=== PATIENT | female | born 1975 | race Caucasian/White ===

== ENCOUNTER 2016-09-18 08:15 | Emergency (ER) | payer BC ==
[~2016-09-18] VITALS: Ht 172.7 cm; Wt 78.9 kg
[2016-09-18 08:19] VITALS: BP_SYST 128
[2016-09-18 09:01] LABS: BILIRUBIN,URINE NEGATIVE (NEGATIVE); BLOOD, URINE 3+ (NEGATIVE); CLARITY/URINE CLEAR (CLEAR); COLOR,URINE YELLOW (YELLOW); GLUCOSE,URINE NEGATIVE (NEGATIVE); KETONES,URINE NEGATIVE (NEGATIVE); LEUKOCYTE ESTERASE ,URINE TRACE (NEGATIVE); NITRITE, URINE NEGATIVE (NEGATIVE); PROTEIN URINE 1+ (NEGATIVE); UROBILINOGEN,URINE 0.2 (0.2-1.0)
[2016-09-18 09:06] LABS: BASOPHILS % (AUTO) 0.3 % (0.0-2.0); EOSINOPHILS % (AUTO) 0.4 % (0.0-4.0); HEMATOCRIT 32.6 % (36-48); LYMPHOCYTES # (AUTO) 1.1 K/uL (1.0-5.5); LYMPHOCYTES % (AUTO) 28.8 % (20.5-51.5); MEAN CORPUSCULAR HEMOGLOBIN 33 pg (27-31); MEAN CORPUSCULAR HGB CONC 34 % (32-36); MEAN CORPUSCULAR VOLUME 97 fL (79.0-98.0); MONOCYTES # (AUTO) 0.5 K/uL (0.0-1.0); NEUTROPHILS # (AUTO) 2.3 K/uL (1.8-7.7); NEUTROPHILS % (AUTO) 58.5 % (40.0-70.0); PLATELET COUNT (AUTO) 175 K/uL (130-430); RED BLOOD CELL COUNT(AUTO) 3.36 MIL/uL (4.2-6.2); RED CELL DISTRIBUTION WIDTH 12.1 % (9.0-15.0); WHITE BLOOD COUNT (AUTO) 3.9 K/uL (4.8-10.8)
[2016-09-18 09:08] LABS: BACTERIA,URINE MODERATE /HPF (None Seen)
[2016-09-18 09:12] LABS: CALCIUM 8.7 mg/dL (8.4-11.0); CREATININE 0.78 mg/dL (0.55-1.30); POTASSIUM 3.7 mmol/L (3.5-5.1)
[2016-09-18 09:38] LABS: ALBUMIN 3.2 g/dL (3.4-4.8); TOTAL BILIRUBIN 0.2 mg/dL (0.0-1.0); TOTAL PROTEIN, SERUM 7.4 g/dL (6.4-8.3)
[2016-09-18] MEDS ORDERED: NITROFURANTOIN MONOHYD/M-CRYST 100 MG CAPSULE PO SCH (10:00)
[2016-09-18] MEDS ORDERED: MAGNESIUM CITRATE 300 ML ORAL SOLUTION PO ONE (10:15)
[2016-09-18 10:44] VITALS: BP_SYST 130
== END 2016-09-18 10:44 | disposition home or self-care (01) ==
LOC: SED 08:15
DX: O20.0 Threatened abortion (principal); O23.42 Unspecified infection of urinary tract in pregnancy, second trimester; Z3A.17 17 weeks gestation of pregnancy
CPT/HCPCS: 36415; 76805-TC; 80053; 81000-TC; 81025; 84702-TC; 85025; 86900; 86901; 87086; 99285

== ENCOUNTER 2017-02-03 15:40 | Inpatient (IN) | payer BC ==
[~2017-02-03] VITALS: Ht 172.7 cm; Wt 104.3 kg
[2017-02-03] MEDS ORDERED: OXYTOCIN/NORMAL SALINE 1,000 ML IV SCH (16:48)
[2017-02-03] MEDS ORDERED: LR 1,000 ML IV SCH (16:48)
[2017-02-03] MEDS ORDERED: LR 1,000 ML IV ONE (16:48)
[2017-02-03] MEDS ORDERED: NALBUPHINE HCL 10 MG/ML AMP IVP PRN (17:00)
[2017-02-03] MEDS ORDERED: TERBUTALINE SULFATE 1 MG/ML VIAL SUBCUT ONE (17:00)
[2017-02-03 17:28] LABS: BASOPHILS % (AUTO) 0.3 % (0.0-2.0); EOSINOPHILS % (AUTO) 0.2 % (0.0-4.0); HEMATOCRIT 30.4 % (36-48); HEMOGLOBIN 10.7 g/dL (12.0-16.0); LYMPHOCYTES # (AUTO) 1.1 K/uL (1.0-5.5); LYMPHOCYTES % (AUTO) 18.9 % (20.5-51.5); MEAN CORPUSCULAR HEMOGLOBIN 36 pg (27-31); MEAN CORPUSCULAR HGB CONC 35 % (32-36); MEAN CORPUSCULAR VOLUME 103 fL (79.0-98.0); MONOCYTES # (AUTO) 0.7 K/uL (0.0-1.0); MONOCYTES % (AUTO) 11.5 % (1.7-9.3); NEUTROPHILS % (AUTO) 69.1 % (40.0-70.0); PLATELET COUNT (AUTO) 242 K/uL (130-430); RED BLOOD CELL COUNT(AUTO) 2.94 MIL/uL (4.2-6.2); RED CELL DISTRIBUTION WIDTH 14.6 % (9.0-15.0); WHITE BLOOD COUNT (AUTO) 5.8 K/uL (4.8-10.8)
[2017-02-03 18:37] VITALS: BP_SYST 144
[2017-02-04] MEDS ORDERED: FENT2mCg/mL-ROPIVA0.2%/NS EPID 150 ML EP ONE (09:11)
[2017-02-04] MEDS ORDERED: LR 500 ML IV ONE (09:41)
[2017-02-04] MEDS ORDERED: FENT2mCg/mL-ROPIVA0.2%/NS EPID 150 ML EP SCH (09:45)
[2017-02-04] MEDS ORDERED: ePHEDrine sulfate 50 MG/ML VIAL IVP PRN (09:45)
[2017-02-04] MEDS ORDERED: MORPHINE 4 MG/ML INJ. SYRINGE IM ONE (22:30)
[2017-02-05] MEDS ORDERED: FENT2mCg/mL-ROPIVA0.2%/NS EPID 150 ML EP ONE (06:16)
[2017-02-05] MEDS ORDERED: CEFAZOLIN 2 GM IVPB PREMIX 50 ML IV ONE ×2 (09:53→10:00)
[2017-02-05] MEDS ORDERED: LR 1,000 ML IV ONE (10:46)
[2017-02-05] MEDS ORDERED: ePHEDrine sulfate 50 MG/ML VIAL IVP PRN (11:00)
[2017-02-05] MEDS ORDERED: KETOROLAC TROMETHAMINE 30 MG VIAL IM PRN (11:00)
[2017-02-05] MEDS ORDERED: NALBUPHINE HCL 10 MG/ML AMP IVP PRN (11:00)
[2017-02-05] MEDS ORDERED: fentaNYL CITRATE/PF 100 MCG/2 ML AMP IVP PRN (11:00)
[2017-02-05] MEDS ORDERED: ONDANSETRON HCL 4 MG/2 ML VIAL IVP PRN ×2 (11:00)
[2017-02-05] MEDS ORDERED: NALOXONE HCL 0.4 MG/ML AMP (NARCAN) IVP PRN (11:00)
[2017-02-05] MEDS ORDERED: DIPHENHYDRAMINE INJ 50 MG/ML VIAL IVP PRN (11:00)
[2017-02-05] MEDS ORDERED: OXYTOCIN/NORMAL SALINE 1,000 ML IV ONE (11:05)
[2017-02-05 11:10] VITALS: BP_SYST 148
[2017-02-05] MEDS ORDERED: ACETAMINOPHEN 325 MG TABLET PO PRN (11:15)
[2017-02-05] MEDS ORDERED: LANOLIN 7 GM OINT. TP PRN (11:15)
[2017-02-05] MEDS ORDERED: ANUSOL 1 EA SUPP.RECT (PREPARATION H) RC PRN (11:15)
[2017-02-05] MEDS ORDERED: MEASLES,MUMPS&RUBELLA VACC/PF 12500 UNIT/0.5 ML VIAL SUBQ PRN (11:15)
[2017-02-05] MEDS ORDERED: RHO(D) IMMUNE GLOBULIN/MALTOSE 1500 UNITS/1.3 ML (WINHRO) IM PRN (11:15)
[2017-02-05] MEDS ORDERED: BISACODYL 10 MG/SUPPOSITORY RC PRN (11:15)
[2017-02-05] MEDS ORDERED: fentaNYL CITRATE/PF 100 MCG/2 ML AMP ONE (11:39)
[2017-02-05] MEDS: LR 1,000 ML IV SCH (20:17)
[2017-02-05] MEDS: IBUPROFEN 600 MG TABLET PO SCH (23:59)
[2017-02-06] MEDS: LR 1,000 ML IV SCH (04:26)
[2017-02-06] MEDS: IBUPROFEN 600 MG TABLET PO SCH ×3 (06:41→18:16)
[2017-02-06 06:50] LABS: BASOPHILS % (AUTO) 0.1 % (0.0-2.0); EOSINOPHILS % (AUTO) 0.2 % (0.0-4.0); HEMATOCRIT 28.6 % (36-48); HEMOGLOBIN 9.4 g/dL (12.0-16.0); LYMPHOCYTES # (AUTO) 1.8 K/uL (1.0-5.5); LYMPHOCYTES % (AUTO) 13.4 % (20.5-51.5); MEAN CORPUSCULAR HEMOGLOBIN 34 pg (27-31); MEAN CORPUSCULAR HGB CONC 33 % (32-36); MEAN CORPUSCULAR VOLUME 103 fL (79.0-98.0); MONOCYTES # (AUTO) 0.9 K/uL (0.0-1.0); MONOCYTES % (AUTO) 6.9 % (1.7-9.3); NEUTROPHILS % (AUTO) 79.4 % (40.0-70.0); PLATELET COUNT (AUTO) 187 K/uL (130-430); RED BLOOD CELL COUNT(AUTO) 2.79 MIL/uL (4.2-6.2); RED CELL DISTRIBUTION WIDTH 15.2 % (9.0-15.0); WHITE BLOOD COUNT (AUTO) 13.7 K/uL (4.8-10.8)
[2017-02-06] MEDS: DOCUSATE SODIUM 100 MG CAPSULE PO PRN ×2 (08:27→22:16)
[2017-02-06] MEDS: OXYCODONE/ACETAMINOPHEN 5-325 TABLET PO PRN ×3 (08:27→22:16)
[2017-02-06] MEDS: SIMETHICONE 80 MG TAB.CHEW PO PRN ×3 (08:27→22:16)
[2017-02-06] MEDS ORDERED: BISACODYL 10 MG/SUPPOSITORY RC PRN (13:45)
[2017-02-06] MEDS: SENNOSIDES/DOCUSATE SODIUM 1 TAB TABLET(SENOKOT-S) PO PRN (22:16)
[2017-02-07] MEDS: IBUPROFEN 600 MG TABLET PO SCH ×5 (00:33→23:33)
[2017-02-07] MEDS: OXYCODONE/ACETAMINOPHEN 5-325 TABLET PO PRN ×4 (07:54→23:33)
[2017-02-07] MEDS: DOCUSATE SODIUM 100 MG CAPSULE PO PRN ×2 (12:12→17:38)
[2017-02-07] MEDS: TEMAZEPAM 15 MG CAPSULE PO PRN (23:34)
[2017-02-08] MEDS: IBUPROFEN 600 MG TABLET PO SCH ×3 (05:48→17:23)
[2017-02-08] MEDS: DOCUSATE SODIUM 100 MG CAPSULE PO PRN ×2 (05:49→17:23)
[2017-02-08] MEDS: OXYCODONE/ACETAMINOPHEN 5-325 TABLET PO PRN ×3 (05:49→18:28)
[2017-02-09] MEDS: IBUPROFEN 600 MG TABLET PO SCH ×3 (00:15→12:51)
[2017-02-09] MEDS: SENNOSIDES/DOCUSATE SODIUM 1 TAB TABLET(SENOKOT-S) PO PRN (00:16)
[2017-02-09] MEDS: SIMETHICONE 80 MG TAB.CHEW PO PRN (00:17)
[2017-02-09] MEDS: TEMAZEPAM 15 MG CAPSULE PO PRN (00:18)
[2017-02-09] MEDS: OXYCODONE/ACETAMINOPHEN 5-325 TABLET PO PRN ×3 (02:36→13:51)
[2017-02-09] MEDS: DOCUSATE SODIUM 100 MG CAPSULE PO PRN (08:23)
== END 2017-02-09 15:15 | disposition home or self-care (01) | DRG 765 ==
LOC: SPU 15:40
PROVIDERS: ADMIT Obstetrics & Gynecology; ATTEND Obstetrics & Gynecology
PROC: 10D00Z1 Extraction of Products of Conception, Low, Open Approach (ICD-10-PCS; principal; 2017-02-05 09:15)
DX: O69.81X0 Labor and delivery complicated by cord around neck, without compression, not applicable or unspecified (principal); O99.354 Diseases of the nervous system complicating childbirth; O62.0 Primary inadequate contractions; O13.4 Gestational [pregnancy-induced] hypertension without significant proteinuria, complicating childbirth; M79.7 Fibromyalgia; M06.9 Rheumatoid arthritis, unspecified; G40.909 Epilepsy, unspecified, not intractable, without status epilepticus; F41.9 Anxiety disorder, unspecified; Z3A.37 37 weeks gestation of pregnancy; Z37.0 Single live birth
CPT/HCPCS: 36415; 81002-TC; 85025; 86870; 86886; 86900; 86901; 94760; J0690; J1885; J2270; J2590; J3010; J7120

== ENCOUNTER 2021-10-06 21:36 | Emergency (ER) | payer BC ==
[~2021-10-06] VITALS: Ht 172.7 cm; Wt 72.6 kg
[2021-10-06 21:39] VITALS: BP_SYST 162
--- NOTE | 2021-10-06 21:43 | NUR ---
PT BIBA FROM HOME W/ C/O STRESS AND ANXIETY. PT STATES IT IS RELATED TO COVID HOWEVER SHE STATES SHE DOES NOT HAVE COVID. PT SPEAKING IN FULL SENTENCES, UNLABORED AND EVEN BREATHING. NO SIGNS OF RESP DISTRESS. PT REPORTS TAKING ATIVAN AT HOME. VSS. A&O X4, AND FOLLOWING COMMANDS.
--- NOTE | 2021-10-06 21:43 | NUR ---
Dr. Waggoner with patient for evaulation.
--- NOTE | 2021-10-06 21:48 | NUR ---
Patient to ER bed 07 for evaluation. Side rails up. Report given to Wolfgang MENON.
--- NOTE | 2021-10-06 22:00 | NUR ---
Pt to bed 7 via EMS and states to me "I called 911 because I am concerned I was going to have another seizure because I am twitching a lot". MD Lovell at bedside at this time. Respirations unlabored and tachypneic. Normal skin color for ethnicity. Patient constantly moving arms around in the air saying "See I am having convulsions".
[2021-10-06] MEDS ORDERED: LORazepam 1 MG TABLET PO ONE (22:15)
[2021-10-06 23:34] LABS: BASOPHILS % (AUTO) 0.4 % (0.0-2.0); EOSINOPHILS % (AUTO) 0.1 % (0.0-4.0); HEMATOCRIT 35.2 % (36-48); HEMOGLOBIN 12.2 g/dL (12.0-16.0); LYMPHOCYTES % (AUTO) 21.6 % (20.5-51.5); MEAN CORPUSCULAR HEMOGLOBIN 34 pg (27-31); MEAN CORPUSCULAR HGB CONC 35 % (32-36); MEAN CORPUSCULAR VOLUME 97 fL (79.0-98.0); MONOCYTES # (AUTO) 0.6 K/uL (0.0-1.0); NEUTROPHILS % (AUTO) 64.9 % (40.0-70.0); PLATELET COUNT (AUTO) 218 K/uL (130-430); RED BLOOD CELL COUNT(AUTO) 3.63 MIL/uL (4.2-6.2); WHITE BLOOD COUNT (AUTO) 4.7 K/uL (4.8-10.8)
[2021-10-06 23:41] LABS: CALCIUM 9.4 mg/dL (8.4-11.0); CREATININE 0.95 mg/dL (0.55-1.30); POTASSIUM 3.9 mmol/L (3.5-5.1)
[2021-10-06 23:47] LABS: TOTAL BILIRUBIN 0.7 mg/dL (0.0-1.0)
[2021-10-07] MEDS ORDERED: LORA-258 PO (00:02)
--- NOTE | 2021-10-07 00:25 | NUR ---
Patient calling spouse for ride home
--- NOTE | 2021-10-07 00:40 | NUR ---
Patient given written and verbal discharge instructions and verbalizes understanding. ER MD discussed with patient the results and treatment provided. Patient in stable condition. ID arm band removed. Rx of Ativan given. Patient educated on pain management and to follow up with PMD. Pain Scale 0/10. Opportunity for questions provided and answered. Medication side effect fact sheet provided.
[2021-10-07 00:41] VITALS: BP_SYST 130
[2021-10-14] MEDS ORDERED: LEVE500T21 PO (13:31)
== END 2021-10-07 00:40 | disposition home or self-care (01) ==
LOC: SED 21:36
DX: F41.9 Anxiety disorder, unspecified (principal); Z88.8 Allergy status to other drugs, medicaments and biological substances; Z20.822 Contact with and (suspected) exposure to COVID-19
CPT/HCPCS: 36415; 80053; 85025; 99283

== ENCOUNTER 2021-10-10 16:21 | Emergency (ER) | payer BC ==
[~2021-10-10] VITALS: Ht 172.7 cm; Wt 90.7 kg
[2021-10-10 16:21] VITALS: BP_SYST 140
[~2021-10-10 16:21] MED LIST: LORA-258 PO
--- NOTE | 2021-10-10 16:21 | NUR ---
BROUGHT IN BY [facility] AND PLACED IN BED #6, TRIAGED. REPORT GIVEN TO PINEDA
--- NOTE | 2021-10-10 16:35 | NUR ---
Patient BIB [facility] for c/o anxiety and itching in vaginal area. Patient states "I have this bad itchiness in my vagina and I'm afraid that it's going to crawl up and get worse and I also have really bad anxiety." Patient A/Ox4, VSS, resp even and unlabored, ambulatory. Nad noted at this time. Will continue to monitor.
--- NOTE | 2021-10-10 16:39 | NUR ---
QUINN Waggoner at bedside.
[2021-10-10] MEDS ORDERED: ALPRAZolam 0.25 MG TABLET PO ONE (16:45)
[2021-10-10 17:08] VITALS: BP_SYST 140
--- NOTE | 2021-10-10 17:11 | NUR ---
Lab at bedside.
[2021-10-10 17:49] LABS: ANION GAP 14 (5-15); CALCIUM 9.7 mg/dL (8.4-11.0); CHLORIDE 98 mmol/L (98-107); CREATININE 1.02 mg/dL (0.55-1.30); GFR AFRICAN AMERICAN 75 mL/min (>90); GLUCOSE 100 mg/dL (70-99); POTASSIUM 3.3 mmol/L (3.5-5.1); SODIUM SERUM 133 mmol/L (136-145); UREA NITROGEN, BLOOD 13 mg/dL (8-21)
[2021-10-10 17:53] LABS: BASOPHILS % (AUTO) 0.5 % (0.0-2.0); EOSINOPHILS % (AUTO) 0.1 % (0.0-4.0); HEMATOCRIT 36.4 % (36-48); HEMOGLOBIN 12.8 g/dL (12.0-16.0); LYMPHOCYTES % (AUTO) 24.4 % (20.5-51.5); MEAN CORPUSCULAR HEMOGLOBIN 34 pg (27-31); MEAN CORPUSCULAR HGB CONC 35 % (32-36); MEAN CORPUSCULAR VOLUME 96 fL (79.0-98.0); MONOCYTES # (AUTO) 0.7 K/uL (0.0-1.0); MONOCYTES % (AUTO) 15.9 % (1.7-9.3); NEUTROPHILS # (AUTO) 2.4 K/uL (1.8-7.7); NEUTROPHILS % (AUTO) 59.1 % (40.0-70.0); PLATELET COUNT (AUTO) 238 K/uL (130-430); RED BLOOD CELL COUNT(AUTO) 3.79 MIL/uL (4.2-6.2); RED CELL DISTRIBUTION WIDTH 13.3 % (9.0-15.0); WHITE BLOOD COUNT (AUTO) 4.1 K/uL (4.8-10.8)
--- NOTE | 2021-10-10 18:00 | NUR ---
Patient unable to provide urine sample at this time. Patient states "I just need to drink water cause I feel dehydrated and then I'll be able to pee for you." Patient given 3 cups of water at this time. Nad noted at this time. Will continue to monitor.
[2021-10-10 18:01] LABS: ALANINE AMINOTRANSFERASE 20 U/L (12-78); ALBUMIN 4.1 g/dL (3.4-4.8); ASPARTATE AMINOTRANSFERASE 21 U/L (10-37); TOTAL BILIRUBIN 0.7 mg/dL (0.0-1.0)
[2021-10-10 18:02] LABS: C-REACTIVE PROTEIN QUANT < 0.2 mg/dL (0-0.5)
[2021-10-10] MEDS ORDERED: ALPR0.5T PO (18:20)
[2021-10-10] MEDS ORDERED: DIF100 PO ×2 (18:20)
--- NOTE | 2021-10-10 18:47 | NUR ---
Patient still unable to provide urine sample at this time.
--- NOTE | 2021-10-10 19:15 | NUR ---
Patient given written and verbal discharge instructions and verbalizes understanding. ER MD discussed with patient the results and treatment provided. Patient in stable condition. ID arm band removed. IV catheter removed intact and dressing applied, no active bleeding. Rx of DIFLUCAN, XANAX given. Patient educated on pain management and to follow up with PMD. Pain Scale . Opportunity for questions provided and answered. Medication side effect fact sheet provided.
[2021-10-14] MEDS ORDERED: LEVE500T21 PO (13:31)
== END 2021-10-10 19:15 | disposition home or self-care (01) ==
LOC: SED 16:21
DX: N76.0 Acute vaginitis (principal); F41.9 Anxiety disorder, unspecified; Z79.899 Other long term (current) drug therapy
CPT/HCPCS: 36415; 80053; 83605; 84703; 85025; 86140; 99283

== ENCOUNTER 2021-10-11 12:57 | Inpatient (IN) | payer BC ==
[~2021-10-11] VITALS: Ht 172.7 cm; Wt 78.9 kg
[~2021-10-11 12:57] MED LIST changes: +ALPR0.5T PO; +DIF100 PO
[2021-10-11 13:00] VITALS: BP_SYST 134
[2021-10-11 13:26] LABS: BASOPHILS # (AUTO) 0.1 K/uL (0.0-0.2); BASOPHILS % (AUTO) 0.5 % (0.0-2.0); HEMATOCRIT 39.9 % (36-48); HEMOGLOBIN 13.5 g/dL (12.0-16.0); LYMPHOCYTES # (AUTO) 1.3 K/uL (1.0-5.5); LYMPHOCYTES % (AUTO) 8.7 % (20.5-51.5); MEAN CORPUSCULAR HEMOGLOBIN 33 pg (27-31); MEAN CORPUSCULAR HGB CONC 34 % (32-36); MEAN CORPUSCULAR VOLUME 98 fL (79.0-98.0); MONOCYTES # (AUTO) 1.4 K/uL (0.0-1.0); MONOCYTES % (AUTO) 9.3 % (1.7-9.3); NEUTROPHILS # (AUTO) 12.1 K/uL (1.8-7.7); NEUTROPHILS % (AUTO) 81.5 % (40.0-70.0); PLATELET COUNT (AUTO) 299 K/uL (130-430); RED BLOOD CELL COUNT(AUTO) 4.06 MIL/uL (4.2-6.2); RED CELL DISTRIBUTION WIDTH 13.4 % (9.0-15.0); WHITE BLOOD COUNT (AUTO) 14.8 K/uL (4.8-10.8)
[2021-10-11] MEDS ORDERED: NACL 0.9% 1,000 ML IV ONE ×3 (13:30→18:00)
[2021-10-11 13:58] LABS: CALCIUM 9.9 mg/dL (8.4-11.0); CREATININE 1.69 mg/dL (0.55-1.30); POTASSIUM 3.4 mmol/L (3.5-5.1)
[2021-10-11] MEDS ORDERED: DIPH-TET-PERTUS Vaccine 0.5 ML VIAL (ADACEL) I.M. ONE (14:00)
[2021-10-11 14:03] LABS: ALBUMIN 4.3 g/dL (3.4-4.8); TOTAL BILIRUBIN 0.6 mg/dL (0.0-1.0)
[2021-10-11] MEDS ORDERED: LORazepam 2 MG/ML VIAL IVP ONE (14:30)
[2021-10-11 14:54] LABS: BILIRUBIN,URINE 1+ (NEGATIVE); BLOOD, URINE 1+ (NEGATIVE); CLARITY/URINE CLEAR (CLEAR); COLOR,URINE YELLOW (YELLOW); GLUCOSE,URINE NEGATIVE (NEGATIVE); KETONES,URINE 2+ (NEGATIVE); LEUKOCYTE ESTERASE ,URINE NEGATIVE (NEGATIVE); NITRITE, URINE NEGATIVE (NEGATIVE); PROTEIN URINE 1+ (NEGATIVE); UROBILINOGEN,URINE 0.2 (0.2-1.0)
[2021-10-11 15:10] LABS: BARBITURATE, URINE NEGATIVE (NEG <=200); BENZODIAZEPINE, URINE POSITIVE (NEG <=150); CANNABINOID, URINE POSITIVE (NEG <=50); COCAINE, URINE NEGATIVE (NEG <=150); METHAMPHETAMINES SCREEN,URINE NEGATIVE (NEG <=500); OPIATE, URINE NEGATIVE (NEG <=100); PHENCYCLIDINE SCREEN,URINE NEGATIVE (NEG <=25); UR TRICYCLIC ANTIDEPRESSANTS NEGATIVE (NEG <=300); URINE AMPHETAMINE NEGATIVE (NEG <=500); URINE METHADONE NEGATIVE (NEG <=200); URINE OXYCODONE SCREEN NEGATIVE (NEG <=100); URINE PROPOXYPHENE SCREEN NEGATIVE (NEG <=300)
[2021-10-11 15:15] LABS: BACTERIA,URINE RARE /HPF (None Seen); FINE GRANULAR CASTS,URINE 0-10 /LPF (None Seen); WBC,URINE 0-3 /HPF (0-3)
[2021-10-11 16:48] VITALS: BP_SYST 130
[2021-10-11 16:49] VITALS: BP_SYST 130
[2021-10-11] MEDS ORDERED: MAGNESIUM SULFATE 50 ML IV PRN (18:15)
[2021-10-11] MEDS ORDERED: NALOXONE HCL 0.4 MG/ML AMP (NARCAN) IVP PRN ×2 (18:15)
[2021-10-11] MEDS ORDERED: LORazepam 2 MG/ML VIAL IVP PRN (18:15)
[2021-10-11] MEDS ORDERED: DOCUSATE SODIUM 100 MG CAPSULE PO PRN (18:15)
[2021-10-11] MEDS ORDERED: ACETAMINOPHEN 325 MG TABLET PO PRN ×2 (18:15→18:30)
[2021-10-11] MEDS ORDERED: ONDANSETRON HCL 4 MG/2 ML VIAL IVP PRN (18:15)
[2021-10-11] MEDS ORDERED: MORPHINE 2 MG/ML INJ. SYRINGE IVP PRN ×2 (18:15)
[2021-10-11] MEDS ORDERED: MUPIROCIN 2% TOPICAL OINTMENT 22 GM NS PRN (18:15)
[2021-10-11 20:10] VITALS: BP_SYST 145
[2021-10-11] MEDS: levETIRAcetam 500 MG IV PREMIX 100 ML IV SCH (21:01)
[2021-10-11] MEDS: PIPERACILLIN/TAZO 3.375/DEX-IS 50 ML IV SCH (21:02)
[2021-10-12] VITALS: BP_SYST 141
[2021-10-12] MEDS: PIPERACILLIN/TAZO 3.375/DEX-IS 50 ML IV SCH (01:22)
[2021-10-12] MEDS: POTASSIUM CHLORIDE 20 MEQ TAB.PRT.SR PO PRN (01:22)
[2021-10-12] MEDS: ZOLPIDEM TARTRATE 5 MG TABLET PO PRN (01:23)
[2021-10-12 07:33] LABS: BASOPHILS % (AUTO) 0.5 % (0.0-2.0); EOSINOPHILS % (AUTO) 0.1 % (0.0-4.0); HEMATOCRIT 34.6 % (36-48); LYMPHOCYTES # (AUTO) 1.2 K/uL (1.0-5.5); LYMPHOCYTES % (AUTO) 21.9 % (20.5-51.5); MEAN CORPUSCULAR HEMOGLOBIN 34 pg (27-31); MEAN CORPUSCULAR HGB CONC 35 % (32-36); MEAN CORPUSCULAR VOLUME 98 fL (79.0-98.0); MONOCYTES % (AUTO) 17.6 % (1.7-9.3); NEUTROPHILS # (AUTO) 3.3 K/uL (1.8-7.7); NEUTROPHILS % (AUTO) 59.9 % (40.0-70.0); PLATELET COUNT (AUTO) 191 K/uL (130-430); RED BLOOD CELL COUNT(AUTO) 3.55 MIL/uL (4.2-6.2); RED CELL DISTRIBUTION WIDTH 13.2 % (9.0-15.0); WHITE BLOOD COUNT (AUTO) 5.6 K/uL (4.8-10.8)
[2021-10-12 08:00] VITALS: BP_SYST 148
[2021-10-12] MEDS: levETIRAcetam 500 MG IV PREMIX 100 ML IV SCH ×2 (08:59→21:39)
[2021-10-12 10:09] LABS: CALCIUM 8.6 mg/dL (8.4-11.0); CREATININE 0.99 mg/dL (0.55-1.30); POTASSIUM 3.2 mmol/L (3.5-5.1)
[2021-10-12] MEDS: LORazepam 2 MG/ML VIAL IV PRN ×2 (11:41→21:36)
[2021-10-12 12:00] VITALS: BP_SYST 134
[2021-10-12 16:00] VITALS: BP_SYST 124
[2021-10-12 20:00] VITALS: BP_SYST 135
[2021-10-13 06:22] LABS: HEMOGLOBIN 11.8 g/dL (12.0-16.0)
[2021-10-13 06:30] LABS: BASOPHILS % (AUTO) 0.7 % (0.0-2.0); EOSINOPHILS % (AUTO) 0.6 % (0.0-4.0); HEMATOCRIT 33.7 % (36-48); LYMPHOCYTES # (AUTO) 1.1 K/uL (1.0-5.5); LYMPHOCYTES % (AUTO) 32.5 % (20.5-51.5); MEAN CORPUSCULAR HEMOGLOBIN 34 pg (27-31); MEAN CORPUSCULAR HGB CONC 35 % (32-36); MEAN CORPUSCULAR VOLUME 96 fL (79.0-98.0); MONOCYTES # (AUTO) 0.6 K/uL (0.0-1.0); MONOCYTES % (AUTO) 18.5 % (1.7-9.3); NEUTROPHILS # (AUTO) 1.7 K/uL (1.8-7.7); NEUTROPHILS % (AUTO) 47.7 % (40.0-70.0); PLATELET COUNT (AUTO) 192 K/uL (130-430); RED BLOOD CELL COUNT(AUTO) 3.49 MIL/uL (4.2-6.2); RED CELL DISTRIBUTION WIDTH 13.4 % (9.0-15.0); WHITE BLOOD COUNT (AUTO) 3.5 K/uL (4.8-10.8)
[2021-10-13 06:32] LABS: CALCIUM 8.8 mg/dL (8.4-11.0); CREATININE 0.79 mg/dL (0.55-1.30); POTASSIUM 3.3 mmol/L (3.5-5.1)
[2021-10-13 08:00] VITALS: BP_SYST 128
[2021-10-13] MEDS: levETIRAcetam 500 MG IV PREMIX 100 ML IV SCH ×2 (08:58→21:29)
[2021-10-13 12:00] VITALS: BP_SYST 132
[2021-10-13] MEDS: LORazepam 2 MG/ML VIAL IV PRN (13:33)
[2021-10-13 16:00] VITALS: BP_SYST 156
[2021-10-13 20:00] VITALS: BP_SYST 151
[2021-10-13] MEDS: ZOLPIDEM TARTRATE 5 MG TABLET PO PRN (21:31)
[2021-10-14] MEDS: LORazepam 2 MG/ML VIAL IV PRN ×3 (03:46→23:10)
[2021-10-14 07:10] LABS: BASOPHILS % (AUTO) 0.7 % (0.0-2.0); EOSINOPHILS % (AUTO) 0.4 % (0.0-4.0); HEMATOCRIT 31.8 % (36-48); HEMOGLOBIN 11.1 g/dL (12.0-16.0); LYMPHOCYTES # (AUTO) 0.8 K/uL (1.0-5.5); LYMPHOCYTES % (AUTO) 24.4 % (20.5-51.5); MEAN CORPUSCULAR HEMOGLOBIN 34 pg (27-31); MEAN CORPUSCULAR HGB CONC 35 % (32-36); MEAN CORPUSCULAR VOLUME 96 fL (79.0-98.0); MONOCYTES # (AUTO) 0.5 K/uL (0.0-1.0); NEUTROPHILS # (AUTO) 1.9 K/uL (1.8-7.7); NEUTROPHILS % (AUTO) 58.5 % (40.0-70.0); PLATELET COUNT (AUTO) 182 K/uL (130-430); RED CELL DISTRIBUTION WIDTH 13.3 % (9.0-15.0); WHITE BLOOD COUNT (AUTO) 3.2 K/uL (4.8-10.8)
[2021-10-14 07:19] LABS: CALCIUM 8.4 mg/dL (8.4-11.0); CREATININE 0.8 mg/dL (0.55-1.30)
[2021-10-14 07:45] VITALS: BP_SYST 139
[2021-10-14 08:00] VITALS: BP_SYST 139
[2021-10-14] MEDS: levETIRAcetam 500 MG IV PREMIX 100 ML IV SCH ×2 (09:44→23:00)
[2021-10-14 12:00] VITALS: BP_SYST 132
[2021-10-14] MEDS ORDERED: LEVE500T21 PO ×2 (13:31)
[2021-10-14 16:00] VITALS: BP_SYST 128
[2021-10-14 20:00] VITALS: BP_SYST 134
[2021-10-14] MEDS: POTASSIUM CHLORIDE 20 MEQ TAB.PRT.SR PO PRN (23:02)
[2021-10-15] VITALS: BP_SYST 129
[2021-10-15 06:41] LABS: BASOPHILS % (AUTO) 0.7 % (0.0-2.0); EOSINOPHILS % (AUTO) 0.7 % (0.0-4.0); HEMATOCRIT 31.1 % (36-48); HEMOGLOBIN 10.9 g/dL (12.0-16.0); LYMPHOCYTES % (AUTO) 36.2 % (20.5-51.5); MEAN CORPUSCULAR HEMOGLOBIN 34 pg (27-31); MEAN CORPUSCULAR HGB CONC 35 % (32-36); MEAN CORPUSCULAR VOLUME 97 fL (79.0-98.0); MONOCYTES # (AUTO) 0.6 K/uL (0.0-1.0); MONOCYTES % (AUTO) 22.3 % (1.7-9.3); NEUTROPHILS # (AUTO) 1.1 K/uL (1.8-7.7); NEUTROPHILS % (AUTO) 40.1 % (40.0-70.0); PLATELET COUNT (AUTO) 179 K/uL (130-430); RED BLOOD CELL COUNT(AUTO) 3.23 MIL/uL (4.2-6.2); RED CELL DISTRIBUTION WIDTH 13.2 % (9.0-15.0); WHITE BLOOD COUNT (AUTO) 2.7 K/uL (4.8-10.8)
[2021-10-15 08:50] LABS: CALCIUM 8.5 mg/dL (8.4-11.0); CREATININE 0.92 mg/dL (0.55-1.30); POTASSIUM 3.2 mmol/L (3.5-5.1)
[2021-10-15] MEDS: levETIRAcetam 500 MG IV PREMIX 100 ML IV SCH ×2 (09:23→21:48)
[2021-10-15 12:00] VITALS: BP_SYST 122
[2021-10-15] MEDS: LORazepam 2 MG/ML VIAL IV PRN ×2 (15:42→21:56)
[2021-10-15 16:43] VITALS: BP_SYST 128
[2021-10-15] MEDS: POTASSIUM CHLORIDE 20 MEQ TAB.PRT.SR PO PRN (18:57)
[2021-10-15 20:00] VITALS: BP_SYST 126
[2021-10-16] VITALS: BP_SYST 125
[2021-10-16 04:00] VITALS: BP_SYST 128
[2021-10-16 06:51] LABS: BASOPHILS % (AUTO) 0.6 % (0.0-2.0); EOSINOPHILS % (AUTO) 1.2 % (0.0-4.0); HEMATOCRIT 31.9 % (36-48); HEMOGLOBIN 11.2 g/dL (12.0-16.0); LYMPHOCYTES % (AUTO) 37.9 % (20.5-51.5); MEAN CORPUSCULAR HEMOGLOBIN 34 pg (27-31); MEAN CORPUSCULAR HGB CONC 35 % (32-36); MEAN CORPUSCULAR VOLUME 97 fL (79.0-98.0); MONOCYTES # (AUTO) 0.5 K/uL (0.0-1.0); NEUTROPHILS # (AUTO) 1.1 K/uL (1.8-7.7); NEUTROPHILS % (AUTO) 40.3 % (40.0-70.0); PLATELET COUNT (AUTO) 173 K/uL (130-430); RED CELL DISTRIBUTION WIDTH 13.2 % (9.0-15.0); WHITE BLOOD COUNT (AUTO) 2.7 K/uL (4.8-10.8)
[2021-10-16 07:39] LABS: CALCIUM 8.5 mg/dL (8.4-11.0); CREATININE 0.84 mg/dL (0.55-1.30); POTASSIUM 3.5 mmol/L (3.5-5.1)
[2021-10-16 08:00] VITALS: BP_SYST 117
[2021-10-16] MEDS: levETIRAcetam 500 MG IV PREMIX 100 ML IV SCH (09:29)
[2021-10-16] MEDS: LORazepam 2 MG/ML VIAL IV PRN ×2 (09:35→16:14)
[2021-10-16] MEDS ORDERED: LEVE500T21 PO (10:41)
[2021-10-16 16:00] VITALS: BP_SYST 138
[2021-10-16 16:51] VITALS: BP_SYST 138
== END 2021-10-16 18:50 | disposition home or self-care (01) | DRG 100 ==
LOC: SED 12:57 → STU 15:44 → SMU 10-15 05:58
PROVIDERS: ADMIT Family Medicine; ATTEND Family Medicine
DX: G40.909 Epilepsy, unspecified, not intractable, without status epilepticus (principal); N17.0 Acute kidney failure with tubular necrosis; E87.1 Hypo-osmolality and hyponatremia; Z20.822 Contact with and (suspected) exposure to COVID-19; F41.9 Anxiety disorder, unspecified; F32.A Depression, unspecified; E87.6 Hypokalemia; E86.0 Dehydration; S00.81XA Abrasion of other part of head, initial encounter; X58.XXXA Exposure to other specified factors, initial encounter; Y93.89 Activity, other specified; Z79.899 Other long term (current) drug therapy; Y92.89 Other specified places as the place of occurrence of the external cause; Y99.8 Other external cause status
CPT/HCPCS: 36415; 36430; 70450-TC; 70486-TC; 71045; 76376; 80048; 80053; 80307; 81000; 83036; 83735; 85025; 90715; 93005; 95816; 96361; 96374; 97116-GP; 97530-GP; 99285; G0378; G0482; J1953; J2060; J2270; J2543

== ENCOUNTER 2023-02-24 13:11 | Inpatient (IN) | payer BC ==
[~2023-02-24] VITALS: Ht 172.7 cm; Wt 93.9 kg
[~2023-02-24 13:11] MED LIST changes: -DIF100 PO; +LEVE500T21 PO
[2023-02-24 13:16] VITALS: BP_SYST 139; PULSE 125; RESP 22; TEMP 98.3; O2SAT 98
[2023-02-24 13:57] LABS: BASOPHILS % (AUTO) 0.4 % (0.0-2.0); EOSINOPHILS % (AUTO) 0.1 % (0.0-4.0); HEMATOCRIT 40.5 % (36-48); HEMOGLOBIN 13.6 g/dL (12.0-16.0); LYMPHOCYTES % (AUTO) 27.8 % (20.5-51.5); MEAN CORPUSCULAR HEMOGLOBIN 34 pg (27-31); MEAN CORPUSCULAR HGB CONC 34 % (32-36); MEAN CORPUSCULAR VOLUME 102 fL (79.0-98.0); MONOCYTES # (AUTO) 0.5 K/uL (0.0-1.0); MONOCYTES % (AUTO) 14.9 % (1.7-9.3); NEUTROPHILS % (AUTO) 56.8 % (40.0-70.0); PLATELET COUNT (AUTO) 235 K/uL (130-430); RED BLOOD CELL COUNT(AUTO) 3.96 MIL/uL (4.2-6.2); WHITE BLOOD COUNT (AUTO) 3.5 K/uL (4.8-10.8)
[2023-02-24 14:07] LABS: ANION GAP 9 (5-15); CALCIUM 9.9 mg/dL (8.4-11.0); CARBON DIOXIDE 25 mmol/L (23-29); CHLORIDE 95 mmol/L (98-107); CREATININE 1.13 mg/dL (0.55-1.30); GFR AFRICAN AMERICAN 67 mL/min (>90); GLUCOSE 95 mg/dL (74-106); POTASSIUM 4.2 mmol/L (3.5-5.1); SODIUM SERUM 129 mmol/L (136-145); UREA NITROGEN, BLOOD 17 mg/dL (8-21)
[2023-02-24 14:11] LABS: GFR NON AFRICAN-AMERICAN 55 mL/min (>90)
[2023-02-24 14:14] LABS: LIPASE 25 U/L (16-77); PHOSPHORUS 3.1 mg/dL (2.7-4.5)
[2023-02-24] MEDS ORDERED: NACL 0.9% 1,000 ML IV ONE (14:15)
[2023-02-24 14:16] LABS: ALCOHOL, BLOOD < 3 mg/dL (<10)
[2023-02-24 16:04] LABS: BILIRUBIN,URINE 1+ (NEGATIVE); BLOOD, URINE 3+ (NEGATIVE); CLARITY/URINE CLEAR (CLEAR); COLOR,URINE YELLOW (YELLOW); GLUCOSE,URINE NEGATIVE (NEGATIVE); KETONES,URINE 2+ (NEGATIVE); LEUKOCYTE ESTERASE ,URINE NEGATIVE (NEGATIVE); NITRITE, URINE NEGATIVE (NEGATIVE); PROTEIN URINE 1+ (NEGATIVE); UROBILINOGEN,URINE 0.2 (0.2-1.0)
[2023-02-24 16:38] LABS: BENZODIAZEPINE, URINE POSITIVE (NEG <=150); CANNABINOID, URINE POSITIVE (NEG <=50)
[2023-02-24 16:39] LABS: BARBITURATE, URINE NEGATIVE (NEG <=200); COCAINE, URINE NEGATIVE (NEG <=150); METHAMPHETAMINES SCREEN,URINE NEGATIVE (NEG <=500); OPIATE, URINE NEGATIVE (NEG <=100); PHENCYCLIDINE SCREEN,URINE NEGATIVE (NEG <=25); UR TRICYCLIC ANTIDEPRESSANTS POSITIVE (NEG <=300); URINE AMPHETAMINE NEGATIVE (NEG <=500); URINE METHADONE NEGATIVE (NEG <=200); URINE OXYCODONE SCREEN NEGATIVE (NEG <=100)
[2023-02-24] MEDS ORDERED: HAL5 PO (17:34)
[2023-02-24] MEDS ORDERED: DULO60CA65 PO (17:34)
[2023-02-24] MEDS ORDERED: QUET25TA36 PO (17:34)
[2023-02-24] MEDS ORDERED: CLON2TAB11 PO (17:34)
[2023-02-24] MEDS ORDERED: LEVE500T99 PO (17:34)
[2023-02-24 17:40] LABS: BACTERIA,URINE None Seen /HPF (None Seen)
[2023-02-24] MEDS ORDERED: MAGNESIUM SULFATE 50 ML IV PRN (18:45)
[2023-02-24] MEDS ORDERED: MUPIROCIN 2% TOPICAL OINTMENT 22 GM NS PRN (18:45)
[2023-02-24] MEDS ORDERED: LORazepam 2 MG/ML VIAL IVP PRN (18:45)
[2023-02-24] MEDS ORDERED: DOCUSATE SODIUM 100 MG CAPSULE PO PRN (18:45)
[2023-02-24] MEDS ORDERED: POTASSIUM CHLORIDE 20 MEQ TABLET.ER PO PRN (18:45)
[2023-02-24] MEDS ORDERED: ONDANSETRON HCL 4 MG/2 ML VIAL IVP PRN (18:45)
[2023-02-24] MEDS ORDERED: ZOLPIDEM TARTRATE 5 MG TABLET PO PRN (18:45)
[2023-02-24] MEDS ORDERED: IBUPROFEN 800 MG TABLET PO PRN (18:45)
[2023-02-24] MEDS ORDERED: ACETAMINOPHEN 500 MG TABLET PO PRN ×3 (19:00)
[2023-02-24] MEDS: NACL 0.9% 1,000 ML IV SCH (19:21)
[2023-02-24] MEDS: levETIRAcetam 500 MG TABLET PO SCH (21:10)
[2023-02-24] MEDS ORDERED: HALOPERIDOL 5 MG TABLET (HALDOL) ONE (21:18)
[2023-02-24] MEDS ORDERED: QUEtiapine FUMARATE 25 MG TABLET ONE (21:18)
[2023-02-24] MEDS: HALOPERIDOL 5 MG TABLET (HALDOL) PO SCH (21:46)
[2023-02-24] MEDS: QUEtiapine FUMARATE 25 MG TABLET PO SCH (21:46)
[2023-02-25 02:55] VITALS: BP_SYST 128; PULSE 93; RESP 18; TEMP 98.8
[2023-02-25 04:01] VITALS: O2SAT 97
[2023-02-25 05:33] LABS: BASOPHILS % (AUTO) 0.5 % (0.0-2.0); EOSINOPHILS % (AUTO) 0.3 % (0.0-4.0); HEMATOCRIT 37.7 % (36-48); HEMOGLOBIN 12.3 g/dL (12.0-16.0); LYMPHOCYTES # (AUTO) 1.2 K/uL (1.0-5.5); LYMPHOCYTES % (AUTO) 39.5 % (20.5-51.5); MEAN CORPUSCULAR HEMOGLOBIN 34 pg (27-31); MEAN CORPUSCULAR HGB CONC 33 % (32-36); MEAN CORPUSCULAR VOLUME 103 fL (79.0-98.0); MONOCYTES # (AUTO) 0.6 K/uL (0.0-1.0); MONOCYTES % (AUTO) 20.3 % (1.7-9.3); NEUTROPHILS # (AUTO) 1.2 K/uL (1.8-7.7); NEUTROPHILS % (AUTO) 39.4 % (40.0-70.0); PLATELET COUNT (AUTO) 239 K/uL (130-430); RED BLOOD CELL COUNT(AUTO) 3.66 MIL/uL (4.2-6.2); RED CELL DISTRIBUTION WIDTH 14.2 % (9.0-15.0)
[2023-02-25 05:54] LABS: CALCIUM 9.2 mg/dL (8.4-11.0); CREATININE 1.05 mg/dL (0.55-1.30); POTASSIUM 3.3 mmol/L (3.5-5.1)
[2023-02-25] MEDS: NACL 0.9% 1,000 ML IV SCH ×2 (06:59→23:10)
[2023-02-25] MEDS ORDERED: POTASSIUM CHLORIDE 20 MEQ TABLET.ER PO ONE (07:15)
[2023-02-25 08:00] VITALS: O2SAT 97
[2023-02-25] MEDS: DULoxetine HCL 30 MG CAPSULE.DR (CYMBALTA) PO SCH (09:24)
[2023-02-25] MEDS: HALOPERIDOL 5 MG TABLET (HALDOL) PO SCH ×2 (09:24→21:25)
[2023-02-25] MEDS: levETIRAcetam 500 MG TABLET PO SCH ×2 (09:25→21:26)
[2023-02-25 11:10] VITALS: BP_SYST 135; PULSE 100; RESP 16; TEMP 99.1; O2SAT 98
[2023-02-25 15:07] VITALS: BP_SYST 130; PULSE 51; RESP 16; TEMP 97.4; O2SAT 100
[2023-02-25 20:05] VITALS: BP_SYST 132; PULSE 88; RESP 18; TEMP 97.8; O2SAT 96
[2023-02-25] MEDS: QUEtiapine FUMARATE 25 MG TABLET PO SCH (21:25)
[2023-02-26 01:06] VITALS: BP_SYST 127; PULSE 88; RESP 19; TEMP 97; O2SAT 97
[2023-02-26 05:51] LABS: BASOPHILS % (AUTO) 0.4 % (0.0-2.0); EOSINOPHILS % (AUTO) 0.5 % (0.0-4.0); HEMATOCRIT 35.1 % (36-48); LYMPHOCYTES # (AUTO) 0.7 K/uL (1.0-5.5); LYMPHOCYTES % (AUTO) 29.9 % (20.5-51.5); MEAN CORPUSCULAR HEMOGLOBIN 35 pg (27-31); MEAN CORPUSCULAR HGB CONC 34 % (32-36); MEAN CORPUSCULAR VOLUME 102 fL (79.0-98.0); MONOCYTES # (AUTO) 0.4 K/uL (0.0-1.0); MONOCYTES % (AUTO) 18.6 % (1.7-9.3); NEUTROPHILS # (AUTO) 1.2 K/uL (1.8-7.7); NEUTROPHILS % (AUTO) 50.6 % (40.0-70.0); PLATELET COUNT (AUTO) 206 K/uL (130-430); RED BLOOD CELL COUNT(AUTO) 3.44 MIL/uL (4.2-6.2); RED CELL DISTRIBUTION WIDTH 13.8 % (9.0-15.0); WHITE BLOOD COUNT (AUTO) 2.3 K/uL (4.8-10.8)
[2023-02-26 06:33] LABS: CALCIUM 9.3 mg/dL (8.4-11.0); CREATININE 0.91 mg/dL (0.55-1.30); POTASSIUM 3.8 mmol/L (3.5-5.1)
[2023-02-26 08:00] VITALS: BP_SYST 124; PULSE 94; RESP 18; TEMP 98.4; O2SAT 96
[2023-02-26] MEDS: HALOPERIDOL 5 MG TABLET (HALDOL) PO SCH (09:31)
[2023-02-26] MEDS: levETIRAcetam 500 MG TABLET PO SCH (09:31)
[2023-02-26] MEDS: DULoxetine HCL 30 MG CAPSULE.DR (CYMBALTA) PO SCH (09:31)
[2023-02-26 13:30] VITALS: BP_SYST 124; PULSE 94; RESP 18; TEMP 98.4; O2SAT 96
== END 2023-02-26 14:22 | disposition home health service (06) | DRG 74 ==
LOC: SED 13:11 → SMU 17:44
PROVIDERS: ADMIT General Practice; ATTEND General Practice
DX: G90.8 Other disorders of autonomic nervous system (principal); E87.1 Hypo-osmolality and hyponatremia; F32.A Depression, unspecified; F41.1 Generalized anxiety disorder; G40.909 Epilepsy, unspecified, not intractable, without status epilepticus; S09.90XA Unspecified injury of head, initial encounter; W01.0XXA Fall on same level from slipping, tripping and stumbling without subsequent striking against object, initial encounter
CPT/HCPCS: 36415; 70450-TC; 71045; 71100; 76376; 80048; 80307; 81000; 81001; 81015; 82140; 82542; 83037; 83690; 83735; 84100; 84484; 85025; 93005; 96360; 97116-GP; 97163-GP; 97530-GP; 99285; G0482